=== PATIENT | male | born 1985 | race Caucasian/White ===

== ENCOUNTER 2017-08-27 22:25 | Emergency (ER) | payer OTHER ==
[2017-08-27 22:31] VITALS: BP 143/83; PULSE 92; RESP 18; TEMP 97.9; O2SAT 99
[2017-08-27 23:04] LABS: INFLUENZA A NEGATIVE (NEGATIVE); INFLUENZA B NEGATIVE (NEGATIVE)
== END 2017-08-27 23:36 | disposition home or self-care (01) ==
LOC: ED 22:25
DX: J00 Acute nasopharyngitis [common cold] (principal)
CPT/HCPCS: 87430; 87804; 99282